=== PATIENT | female | born 1980 ===

== ENCOUNTER 2019-11-09 14:10 | Inpatient (IN) | payer OTHER ==
[2019-11-09] MEDS ORDERED: CITRIC ACID/SODIUM CITRATE 30 ML UNIT-DOSE CUP PO ONE ×2 (15:02→15:20)
--- NOTE | 2019-11-09 15:14 | HP ---
Past Medical History - Primary Care Physician PCP:: Niyah Castelan - Admission Chief Complaint: leaking AF. UC q 3 min History of Present Illness: 39 yo EDC 11/30/2019 EGA 37 weeks leaking clear fluid, breech presentation in labor. History Source: Patient Limitations to Obtaining History: No Limitations - Past Medical History ...: 6 ...Para: 1 ...: 1 ...Induced : 4 ... Weeks Gestation by Dates: 37 ...EDC by Dates: 11/30/19 Heme/Onc: Yes: Anemia - Past Surgical History Past Surgical History: Yes: Hx Myomectomy: No Hx Transabdominal Cerclage: No - Smoking History Smoking history: Never smoked Have you smoked in the past 12 months: No - Alcohol/Substance Use Hx Alcohol Use: No History of Substance Use: reports: None - Social History Usual Living Arrangement: Yes: With Spouse History of Recent Travel: No Home Medications - Allergies Allergies/Adverse Reactions: Allergies Allergy/AdvReac Type Severity Reaction Status Date / Time No Known Allergies Allergy Verified 11/09/19 15:14 Family Medical History Family Hx Cardiac Disorders: Father Review of Systems - Review of Systems Constitutional: reports: No Symptoms Eyes: reports: No Symptoms HENT: reports: No Symptoms Neck: reports: No Symptoms Cardiovascular: reports: No Symptoms Respiratory: reports: No Symptoms Gastrointestinal: reports: No Symptoms Genitourinary: reports: No Symptoms Breasts: reports: No Symptoms Reported Musculoskeletal: reports: No Symptoms Integumentary: reports: No Symptoms Neurological: reports: No Symptoms Endocrine: reports: No Symptoms Hematology/Lymphatic: reports: No Symptoms Psychiatric: reports: No Symptoms Physical Exam - Maternity Constitutional: Yes: Well Nourished, No Distress Eyes: Yes: WNL HENT: Yes: WNL Neck: Yes: WNL Cardiovascular: Yes: WNL Lungs: Clear to auscultation Breast(s): Yes: WNL - Abdominal Exam/OB Number of Fetuses: Single Presentation: Breech Contractions: Yes Regularity: Regular Intensity: Moderate Monitor Mode: External Heart Rate Location: [facility] Category: I Accelerations: Uniform Decelerations: None - Vaginal Exam/OB Vaginal Bleeding: No Dilatation (cm): 2 Effacement (%): 100 Amniotic Membrane Status: Leaking Amniotic Fluid: Yes: Clear Presentation: Gurvinder Breech Station: +1 - Physical Exam Musculoskeletal: Yes: WNL Extremities: Yes: WNL Edema: No Integumentary: Yes: WNL ...Motor Strength: WNL Psychiatric: Yes: WNL Hemorrhage Risk Assessment - Risk Factors Medium Risk Factors: Yes: Prior , uterine surgery,or multiple laparotomies Risk Score: 1 Risk Level: Medium Risk Problem List - Problems (1) AMA (advanced maternal age) multigravida 35+ Code(s): O09.529 - SUPERVISION OF ELDERLY MULTIGRAVIDA, UNSPECIFIED TRIMESTER (2) Previous delivery affecting , antepartum Code(s): O34.219 - MATERNAL CARE FOR UNSP TYPE SCAR FROM PREVIOUS DEL (3) premature rupture of membranes (PPROM) with onset of labor after 24 hours of rupture in first trimester, antepartum Code(s): O42.111 - PRETRM TOBY ROM, ONSET LABOR > 24 HOURS FOL RUPT, FIRST TRI (4) 37 weeks gestation of Code(s): Z3A.37 - 37 WEEKS GESTATION OF Assessment/Plan Admit to LD Cesarian delivery
[2019-11-09] MEDS ORDERED: AMPICILLIN SODIUM 2 GM VIAL ONE (15:19)
[2019-11-09] MEDS ORDERED: SODIUM CHLORIDE 100 ML IVPB ONE (15:19)
[2019-11-09] MEDS ORDERED: ceFAZolin 2 GRAM PREMIX BAG IVPB ONE ×2 (15:19→16:30)
[2019-11-09] MEDS: ELECTROLYTE-148 SOLN 1,000 ML IV SCH ×2 (15:30→16:20)
[2019-11-09 15:48] VITALS: BMI 25.4
[2019-11-09 15:56] LABS: BASO % 0.3 % (0-2.0); EOS % 0.4 % (0-4.5); HEMATOCRIT 31.7 % (32.4-45.2); HEMOGLOBIN 10.5 GM/dL (10.7-15.3); LYMPH % 17.4 % (8-40); MCH 30.1 pg (25.7-33.7); MCHC 33.3 g/dl (32.0-36.0); MEAN CELL VOLUME 90.4 fl (80-96); MEAN PLT VOLUME 8.3 fl (7.5-11.1); MONO % 9.4 % (3.8-10.2); NEUT % 72.5 % (42.8-82.8); PLATELET COUNT 214 K/MM3 (134-434); RDW 13.8 % (11.6-15.6); WHITE BLOOD COUNT 8.4 K/mm3 (4.0-10.0)
[2019-11-09 16:02] LABS: INR 0.93 (0.83-1.09)
[2019-11-09] MEDS ORDERED: OXYTOCIN 20 UNITS in 0.9% NS 20 UNIT/1,000 ML INFUS.BAG IV ONE (16:02)
[2019-11-09] MEDS ORDERED: ONDANSETRON 4 MG/2 ML VIAL IVPUSH PRN (16:21)
[2019-11-09] MEDS ORDERED: morphine SULFATE/PF 0.5 MG/ML (2cc Syringe - QUVA) ONE (16:26)
[2019-11-09 16:28] LABS: CALCIUM 8.3 mg/dL (8.5-10.1); CREATININE 0.6 mg/dL (0.55-1.3); POTASSIUM 3.9 mmol/L (3.5-5.1)
[2019-11-09] MEDS ORDERED: KETAMINE HCL 500 MG/10 ML VIAL ONE (16:40)
[2019-11-09] MEDS ORDERED: MIDAZOLAM HCL 2 MG/2 ML SINGLE DOSE VIAL ONE (16:57)
[2019-11-09] MEDS ORDERED: OXYTOCIN 10 UNITS/ML VIAL ONE ×6 (17:28)
[2019-11-09] MEDS ORDERED: ceFAZolin SODIUM 1 GM VIAL ONE ×2 (17:28)
[2019-11-09] MEDS ORDERED: METHYLERGONOVINE MALEATE 0.2 MG/1 ML AMP IM PRN (17:34)
[2019-11-09] MEDS ORDERED: oxyCODONE HCL 5 MG TABLET PO PRN (17:34)
[2019-11-09] MEDS ORDERED: ACETAMINOPHEN 325 MG TABLET (FP) PO PRN (17:34)
[2019-11-09] MEDS ORDERED: ACETAMINOPHEN 1000 MG/100 ML VIAL (NON FORMULARY) IVPB PRN (17:40)
[2019-11-09] MEDS ORDERED: BISACODYL 10 MG SUPP.RECT RC SCH (17:45)
[2019-11-09] MEDS ORDERED: OXYTOCIN 20 UNITS in 0.9% NS 20 UNIT/1,000 ML INFUS.BAG IV SCH (17:45)
--- NOTE | 2019-11-09 17:45 | OP ---
Operative Note - Note: Operative Date: 11/09/19 Pre-Operative Diagnosis: 39 yo @ 37 weeks. AMA, PPROM, previous c/s in labor, breech presentation Operation: Rpt c/s x 2 with BTL via LTCS via pfannenstiel incision Findings: Baby girl CAN x 1 borb 9/9 Cord gases and blood collected Placenta and membranes complete Surgeon: Niyah Castelan Abseiling Instructor: Jacinta Handley Anesthesiologist/WOODWORKING SHOP LABORER: Rhett Escudero Anesthesia: Spinal Estimated Blood Loss (mls): 800 Fluid Volume Replaced (mls): 1,000 Operative Report Dictated: No
[2019-11-09 18:19] LABS: CORD BASE EXCESS -2.8 mmol/L (0-2); CORD HCO3 21.1 mmHg (20-29); CORD PCO2 34.3 mmHg (30-78); CORD pH 7.406 (7.14-7.44)
[2019-11-09 18:21] LABS: CORD HCO3 23.9 mmHg (20-29); CORD PCO2 49.4 mmHg (30-78); CORD pH 7.303 (7.14-7.44)
[2019-11-09] MEDS ORDERED: ACETAMINOPHEN INJECTION 100 ML IVPB ONE (18:53)
[2019-11-09] MEDS: SIMETHICONE 80 MG TAB.CHEW (FP) PO SCH (21:49)
[2019-11-09] MEDS: SENNOSIDES/DOCUSATE COMBO (SENNA PLUS) TABLET (UD) PO SCH (22:06)
[2019-11-10] MEDS ORDERED: IBUPROFEN 600 MG TABLET (FP) PO PRN (00:01)
[2019-11-10] MEDS: CEFAZOLIN 1 GM/D5W 1 GM/50 ML BAG IVPB SCH ×3 (00:54→16:38)
[2019-11-10] MEDS: SIMETHICONE 80 MG TAB.CHEW (FP) PO SCH ×6 (01:51→22:00)
[2019-11-10 08:51] LABS: BASO % 0.2 % (0-2.0); EOS % 0.3 % (0-4.5); HEMATOCRIT 32.8 % (32.4-45.2); HEMOGLOBIN 10.8 GM/dL (10.7-15.3); MCH 29.8 pg (25.7-33.7); MCHC 32.9 g/dl (32.0-36.0); MEAN CELL VOLUME 90.6 fl (80-96); MEAN PLT VOLUME 8.2 fl (7.5-11.1); MONO % 8.5 % (3.8-10.2); PLATELET COUNT 215 K/MM3 (134-434); RBC 3.62 M/mm3 (3.60-5.2); RDW 13.3 % (11.6-15.6); WHITE BLOOD COUNT 15.4 K/mm3 (4.0-10.0)
[2019-11-10] MEDS: ENOXAPARIN NA (PORCINE) 40 MG/0.4 ML DISP.SYRIN SQ SCH (10:47)
[2019-11-10] MEDS: MAGNESIUM HYDROX 2400MG/30ML ORAL SUSPENSION 30 ML CUP PO SCH (10:47)
--- NOTE | 2019-11-10 15:01 | PN ---
Progress Note (short form) - Note Progress Note: Anesthesia POD#1 S/P under spinal and DM VSS, nausea yesterday no N/N today,pain is under control. Legs fully recovered. Barbie Gonzalez MD.
[2019-11-10] MEDS: IBUPROFEN 600 MG TABLET (FP) PO PRN ×2 (15:45→20:20)
[2019-11-10] MEDS: ACETAMINOPHEN 325 MG TABLET (FP) PO PRN ×2 (15:45→20:19)
--- NOTE | 2019-11-10 16:30 | PN ---
Post Progress Note Type of Delivery: Repeat C/S Vital Signs: Vital Signs Temperature 98.4 F 11/10/19 15:33 Pulse Rate 94 H 11/10/19 15:33 Respiratory Rate 18 11/10/19 15:33 Blood Pressure 117/67 11/10/19 15:33 O2 Sat by Pulse Oximetry (%) 100 11/09/19 18:30 Breast Exam: Yes: Soft Uterus: Yes: Fundus above umbilicus Incision: Yes: Dressing dry and intact Abdomen/GI: Yes: Abdomen soft, Abdominal Distention, Tender Lochia: Yes: Rubra Lochia, amount: Small Extremities: Yes: Calves non-tender Activity: Ambulating - Labs Labs: CBC WBC 15.4 K/mm3 (4.0-10.0) H 11/10/19 08:34 RBC 3.62 M/mm3 (3.60-5.2) 11/10/19 08:34 Hgb 10.8 GM/dL (10.7-15.3) 11/10/19 08:34 Hct 32.8 % (32.4-45.2) 11/10/19 08:34 MCV 90.6 fl (80-96) 11/10/19 08:34 MCH 29.8 pg (25.7-33.7) 11/10/19 08:34 MCHC 32.9 g/dl (32.0-36.0) 11/10/19 08:34 RDW 13.3 % (11.6-15.6) 11/10/19 08:34 Plt Count 215 K/MM3 (134-434) 11/10/19 08:34 MPV 8.2 fl (7.5-11.1) 11/10/19 08:34 Absolute Neuts (auto) 12.8 K/mm3 (1.5-8.0) H 11/10/19 08:34 Neutrophils % 83.0 % (42.8-82.8) H 11/10/19 08:34 Lymphocytes % 8.0 % (8-40) D 11/10/19 08:34 Monocytes % 8.5 % (3.8-10.2) 11/10/19 08:34 Eosinophils % 0.3 % (0-4.5) 11/10/19 08:34 Basophils % 0.2 % (0-2.0) 11/10/19 08:34 Nucleated RBC % 0 % (0-0) 11/10/19 08:34 Problem List - Problems (1) AMA (advanced maternal age) multigravida 35+ Code(s): O09.529 - SUPERVISION OF ELDERLY MULTIGRAVIDA, UNSPECIFIED TRIMESTER (2) Previous delivery affecting , antepartum Code(s): O34.219 - MATERNAL CARE FOR UNSP TYPE SCAR FROM PREVIOUS DEL (3) premature rupture of membranes (PPROM) with onset of labor after 24 hours of rupture in first trimester, antepartum Code(s): O42.111 - PRETRM TOBY ROM, ONSET LABOR > 24 HOURS FOL RUPT, FIRST TRI (4) 37 weeks gestation of Code(s): Z3A.37 - 37 WEEKS GESTATION OF Assessment/Plan ambulating
[2019-11-10] MEDS: SENNOSIDES/DOCUSATE COMBO (SENNA PLUS) TABLET (UD) PO SCH (20:21)
[2019-11-11] MEDS: SENNOSIDES/DOCUSATE COMBO (SENNA PLUS) TABLET (UD) PO SCH (01:41)
[2019-11-11] MEDS: SIMETHICONE 80 MG TAB.CHEW (FP) PO SCH ×5 (02:22→12:52)
[2019-11-11] MEDS: IBUPROFEN 600 MG TABLET (FP) PO PRN ×2 (05:00→12:51)
[2019-11-11] MEDS: MAGNESIUM HYDROX 2400MG/30ML ORAL SUSPENSION 30 ML CUP PO SCH (09:17)
[2019-11-11] MEDS: ENOXAPARIN NA (PORCINE) 40 MG/0.4 ML DISP.SYRIN SQ SCH (09:17)
[2019-11-11 11:44] VITALS: BP 99/64; PULSE 63; TEMP 98
[2019-11-11] MEDS: ACETAMINOPHEN 325 MG TABLET (FP) PO PRN (12:50)
--- NOTE | 2019-11-11 13:17 | PATH ---
Surgical Pathology Report [facility] Rec. #: [id number] /Age/Gender: 1980 (Age: 39) / F Account: [id number] Location: [facility] OBS/LABOR TRAINING MANAGER Taken: 11/09/2019 Received: 11/10/2019 Reported: 11/11/2019 Physicians: Niyah Castelan M.D. Specimen(s) Received A: PLACENTA B: LEFT FALLOPIAN TUBE C: RIGHT FALLOPIAN TUBE Clinical History , repeat Final Diagnosis A. PLACENTA: THIRD TRIMESTER PLACENTA. TRIVASCULAR CORD. MEMBRANES WITH NO DIAGNOSTIC ABNORMALITIES. B. LEFT PORTION OF FALLOPIAN TUBE, RESECTION: COMPLETE CROSS SECTION OF THE FALLOPIAN TUBE LUMEN IDENTIFIED. C. RIGHT PORTION OF FALLOPIAN TUBE, RESECTION: COMPLETE CROSS SECTION OF THE FALLOPIAN TUBE LUMEN IDENTIFIED. Electronically Signed Meredith Buchanan M.D. Gross Description A. The specimen is received fresh labeled placenta and is a 381 gram, 18.0 x 15.5 x 2.0 cm. placenta with attached membranes and umbilical cord. The attached membranes are jackson, translucent with focal opacities and insert marginally. The umbilical cord measures 14 cm. in length and averages 1 cm. in diameter. The cord inserts eccentrically, 4.5 cm. to the nearest margin. No true knots or strictures are identified. Cut surface of the umbilical cord reveals 3 vessels. The surface is valentino-blue with minimal fibrin deposition and appropriate caliber vessels. The maternal surface is red-brown with focal defects. Sectioning reveals red-brown, spongy parenchyma. No lesions are identified. Paver Operator sections are submitted in three cassettes as follows: 1- membrane rolls and umbilical cord; 2-3- full thickness sections of placenta. B. Received in formalin labeled "portion left tube," is a 1.0 cm in length portion of fallopian tube. No fimbria are present. The outer surface is jackson-pink and smooth. Sectioning reveals an unremarkable lumen. Paver Operator sections are submitted in one cassette. C. Received in formalin labeled "portion of right tube," is a 1.1 cm in length portion of fallopian tube. No fimbria are present. The outer surface is jackson-pink and smooth. Sectioning reveals an unremarkable lumen. Paver Operator sections are submitted in one cassette. DL/11/10/2019 saudi/11/10/2019
--- NOTE | 2019-11-11 13:51 | DS ---
Physical Exam-DEPARTMENT HEAD Vital Signs: Vital Signs Temperature 98.0 F 11/11/19 10:00 Pulse Rate 63 11/11/19 10:00 Respiratory Rate 18 11/11/19 10:00 Blood Pressure 99/64 11/11/19 10:00 O2 Sat by Pulse Oximetry (%) 100 11/09/19 18:30 Labs: CBC, BMP 11/10/19 08:34 11/09/19 15:30 Delivery - Delivery Type of Anesthesia: Spinal Episiotomy/Laceration: None EBL (cc): 800 Delivery, Single - Stages of Labor Date 1st Stage Initiatied: 11/09/19 Time 1st Stage Initiated: 11:00 Date of Delivery: 11/09/19 Time of Delivery: 16:40 Time Placenta Delivered: 16:41 - Condition of Strong Nitric Operator/Ged Tutor Present: Yes Name: Cait Arias Gender: Female Weight: 2.637 kg Total Hours ROM (Hrs/Mins): 5/41 - 1 Minute Total Score: 9 5 Minutes Total Score: 9 - Feeding Plan Initial Plan: Exclusive throughout hospitalization Remarks - Remarks Remarks: asked by Dr. Castelan to see and discharge this patient (if she wishes to go home today) since she is unable to come see her at this time. pt. without complaints. +flatus. tolerating diet, ambulating well vss - af abd: soft, nt,nd. +bs dressing c/d/i ve: min lochia ext: no calf tenderness b/l a/p pod 2 s/p delivery for breech in labor pt doing well will shower now and remove dressing in shower. nurse will inspect prior to discharge and contact MD if any issue. pt. requests to be discharged to home today. Rxs sent instructed as to proper wound care and f/u w Dr. Castelan next week for wound check. d/w Dr. Castelan Discharge Summary Problems reviewed: Yes Reason For Visit: C SECTION BREECH Current Active Problems 37 weeks gestation of (Acute) AMA (advanced maternal age) multigravida 35+ (Acute) premature rupture of membranes (PPROM) with onset of labor after 24 hours of rupture in first trimester, antepartum (Acute) Previous delivery affecting , antepartum (Acute) Procedures: Principal: Condition: Good - Instructions Diet, Activity, Other Instructions: regular diet, activity as tolerated, but avoid strenuous activity , heavy lifting or intercourse. wound care: wash daily with soap and water, rinse well, pat dry and then keep clean, dry and open to air. Referrals: Niyah Castelan MD [Staff Physician] - Disposition: HOME - Home Medications Comprehensive Discharge Medication List: Ambulatory Orders Acetaminophen [Tylenol .Regular Strength -] 650 mg PO Q6H PRN #40 tablet 11/11/19 Ibuprofen [Motrin -] 600 mg PO Q6H PRN #50 tablet 11/11/19
--- NOTE | 2019-11-22 14:07 | OP ---
DATE OF OPERATION: 11/09/2019 PREOPERATIVE DIAGNOSIS: 39-year-old G6, para 0-1-4-1 at 37 weeks, advanced maternal age, premature rupture of membranes, previous section in labor, breech presentation. PROCEDURE: Repeat section x2 with bilateral tubal ligation via Pfannenstiel incision. SURGEON: Janie Segundo MD QUALITY ASSURANCE CLERK: ANESTHESIA: Rhett Escudero MD, spinal. ESTIMATED BLOOD LOSS: 800 mL fluid, 1000 mL lactated Ringer's. URINE OUTPUT: 300 mL at the end of the procedure. FINDINGS: Baby girl found. Cord around the neck x1. 9, 9. Cord gases and blood collected. DESCRIPTION OF PROCEDURE: The patient was taken to the operating room where spinal anesthesia was found to be adequate. She was prepped and draped in the usual sterile fashion in dorsal supine position with a leftward tilt. A Pfannenstiel skin incision was made with a scalpel and carried through to the underlying layer of the fascia with Bovie. The fascia was incised in the midline and the incision extended laterally with Stevenson scissors. The superior and inferior aspect of fascial incision was grasped with Jarad clamps, elevated, and the underlying rectus muscles dissected off bluntly. Attention was then turned to the rectus muscles, which were in the midline. Peritoneum visualized, grasped with pickups, and entered sharply with Metzenbaum scissors. The peritoneal incision was extended superiorly and inferiorly with good visualization of the bladder. The bladder blade was then re-inserted. The vesicouterine peritoneum identified, grasped with pickups, and entered sharply with Metzenbaum scissors. The incision was extended laterally and the bladder flap created digitally. The bladder blade was then re-inserted and the lower uterine segment incised in transverse fashion with a scalpel. The uterine incision was then extended laterally with bandage scissors. The bladder blade was removed, and the infant was delivered atraumatically as breech. Nose and mouth were suctioned and the cord clamped and cut. The infant was handed off to the awaiting market development trainer. Cord gases and blood were collected. Placenta was then removed manually. The uterus exteriorized and cleared of all clot and debris. Uterine incision was repaired with 1-0 chromic in a running, locking fashion. Second layer of the same suture was used to obtain hemostasis. Bladder flap was repaired with 2-0 chromic, and attention was then turned to the fallopian tubes, which were ligated, dissected, and cauterized bilaterally without bleeding noted. The gutters were cleared of all clots and the uterus returned to the abdomen. The peritoneum closed with 2-0 chromic. The fascia was reapproximate with 0 Vicryl in a running fashion, and the skin was closed with roberta. The patient tolerated the procedure well. Sponge, lap, and needle count were correct x2. The patient was taken to the recovery room in stable condition. JANIE SEGUNDO MD [id number]
== END 2019-11-11 16:20 | disposition home or self-care (01) | DRG 785 ==
LOC: JLDR 14:10 → J3W 19:50
PROVIDERS: ADMIT Obstetrics & Gynecology; ATTEND Obstetrics & Gynecology
PROC: 10D00Z1 Extraction of Products of Conception, Low, Open Approach (ICD-10-PCS; principal; 2019-11-09)
PROC: 0UL70ZZ Occlusion of Bilateral Fallopian Tubes, Open Approach (ICD-10-PCS; 2019-11-09)
DX: O42.113 Preterm premature rupture of membranes, onset of labor more than 24 hours following rupture, third trimester (principal); O32.1XX0 Maternal care for breech presentation, not applicable or unspecified; O34.219 Maternal care for unspecified type scar from previous cesarean delivery; O99.02 Anemia complicating childbirth; O69.81X0 Labor and delivery complicated by cord around neck, without compression, not applicable or unspecified; D64.9 Anemia, unspecified; Z3A.37 37 weeks gestation of pregnancy; Z37.0 Single live birth; Z30.2 Encounter for sterilization
CPT/HCPCS: 36415; 36600; 80048; 82803; 85025; 85610; 85730; 86780; 86850; 86900; 86901; 88302-TC; 88307-TC; J0131; U0003